=== PATIENT | female | born 1965 | race Caucasian/White ===

== ENCOUNTER 2021-01-25 01:57 | Emergency (ER) | payer OTHER ==
[2021-01-25 02:21] LABS: HEMOGLOBIN 14.6 gm/dl (12.3-15.3); RED BLOOD COUNT 5.11 M/UL (4.00-5.10); WHITE BLOOD COUNT 8.4 K/UL (4.5-11.0)
[2021-01-25 02:41] LABS: BUN/CREATININE RATIO 18 (0-10)
[2021-01-25] MEDS ORDERED: REGLAN10 MG PO (05:04)
== END 2021-01-25 05:13 | disposition home or self-care (01) ==
LOC: ER1 01:57
PROVIDERS: Physician Assistant
DX: G43.909 Migraine, unspecified, not intractable, without status migrainosus (principal); M54.9 Dorsalgia, unspecified; Z90.710 Acquired absence of both cervix and uterus; Z20.822 Contact with and (suspected) exposure to COVID-19
CPT/HCPCS: 0240U; 70450; 80053; 81001; 82550; 82553; 85025; 87086; 93005; 96374; 96375; 99284; J1885; J2270; J2765; J7120; Q9967